=== PATIENT | male | born 1990 | race Caucasian/White ===

== ENCOUNTER 2017-03-04 03:28 | Inpatient (IN) | payer BC, OTHER ==
[~2017-03-04] VITALS: Ht 193 cm; Wt 72.8 kg
[2017-03-04] MEDS ORDERED: HALOPERIDOL 5 MG/ML VIAL (J1630) IM STA (03:33)
[2017-03-04] MEDS ORDERED: diphenhydrAMINE INJ 50MG/ML VIAL (J1200) IM ONE (03:45)
[2017-03-04 04:20] LABS: MEAN CORPUSCULAR HGB CONC 34.4 g/dl (32.0-36.5); MEAN CORPUSCULAR VOLUME 90.1 fl (80.0-96.0); WHITE BLOOD COUNT 15.9 K/mm3 (4.0-10.0)
[2017-03-04 04:54] LABS: ALBUMIN 4.4 GM/DL (3.2-5.2); ALBUMIN/GLOBULIN RATIO 1.42 (1.00-1.93); ALKALINE PHOSPHATASE 71 U/L (45-117); ALT/SGPT 29 U/L (12-78); ANION GAP 15 MEQ/L (8-16); AST/SGOT 30 U/L (15-37); BILIRUBIN,DIRECT 0.3 MG/DL (0.0-0.2); BILIRUBIN,TOTAL 1.4 MG/DL (0.2-1.0); BLOOD UREA NITROGEN 17 MG/DL (7-18); CALCIUM LEVEL 8.7 MG/DL (8.5-10.1); CARBON DIOXIDE LEVEL 20 MEQ/L (21-32); CHLORIDE LEVEL 103 MEQ/L (98-107); CREATININE FOR GFR 1.47 MG/DL (0.70-1.30); GLOMERULAR FILTRATION RATE > 60.0 (>60); GLUCOSE, FASTING 268 MG/DL (70-105); POTASSIUM SERUM 3.5 MEQ/L (3.5-5.1); SODIUM LEVEL 138 MEQ/L (136-145); TOTAL PROTEIN 7.5 GM/DL (6.4-8.2)
[2017-03-04 05:02] LABS: METHADONE URINE NEGATIVE (NEGATIVE)
[2017-03-04 05:33] LABS: CONTROL LINE INT CTR LINE PRESENT; HIV SCRN NEGATIVE (NEGATIVE); HIV SCRN1 NEGATIVE (NEGATIVE)
[2017-03-04] MEDS ORDERED: LIDOCAINE 1% MDV 20ML VIAL As Ordered ONE (05:52)
[2017-03-04] MEDS ORDERED: LIDOCAINE 1% SDV INJ 30 ML VIAL SC SCH (06:00)
[2017-03-04] MEDS ORDERED: DERMABOND TOPICAL SKIN ADHESIVE TOP ONE (06:00)
[2017-03-04] MEDS ORDERED: LIDOCAINE 1% SDV INJ 30 ML VIAL SC ONE (06:00)
[2017-03-04] MEDS ORDERED: ALBU17IN INH (12:55)
[2017-03-04] MEDS ORDERED: ACETAMINOPHEN TAB 650MG DOSE (2X325MG) PO ONE (19:30)
[2017-03-04] MEDS ORDERED: MAALOX 30 ML SUSP *UDC PO PRN (20:15)
[2017-03-04] MEDS ORDERED: MOM 30ML SUSPENSION UDC PO PRN (20:15)
[2017-03-04 21:10] VITALS: BP 123/89
[2017-03-04] MEDS: QUEtiapine FUMARATE 100 MG TAB PO SCH (22:04)
[2017-03-04] MEDS: risperiDONE 1 MG TAB PO SCH (22:04)
[2017-03-04] MEDS: LORazepam 1 MG TAB PO PRN (22:04)
[2017-03-04] MEDS: traZODone 50 MG TAB PO PRN (22:04)
[2017-03-05] MEDS: ACETAMINOPHEN TAB 650MG DOSE (2X325MG) PO PRN ×2 (06:17→18:12)
[2017-03-05 06:23] VITALS: BP 128/80
[2017-03-05] MEDS: risperiDONE 1 MG TAB PO SCH ×2 (09:07→20:47)
[2017-03-05] MEDS ORDERED: ALBUTEROL 90 MCG/ACT 8GM HFA INHALER INH PRN (10:45)
[2017-03-05 12:24] LABS: BASO % 0.3 % (0.0-1.0); EOS % 0.5 % (0.0-3.0); LARGE UNSTAINED CELL # 0.1 K/mm3 (0.0-0.4); LARGE UNSTAINED CELL % 1.2 % (0.0-4.0); LYMPH # 1.4 K/mm3 (1.5-6.5); LYMPH % 16.8 % (24.0-44.0); MEAN CORPUSCULAR HEMOGLOBIN 30.8 pg (27.0-33.0); MEAN CORPUSCULAR HGB CONC 34.3 g/dl (32.0-36.5); MEAN CORPUSCULAR VOLUME 89.7 fl (80.0-96.0); MONO # 0.4 K/mm3 (0.0-0.8); MONO % 5.2 % (0.0-5.0); NEUTROPHILS # 6.4 K/mm3 (1.8-7.7); PLATELET COUNT, AUTOMATED 199 k/mm3 (150-450); RED CELL DISTRIBUTION WIDTH 12.1 % (11.5-14.5); WHITE BLOOD COUNT 8.4 K/mm3 (4.0-10.0)
[2017-03-05 12:58] LABS: ALBUMIN 4.4 GM/DL (3.2-5.2); ALBUMIN/GLOBULIN RATIO 1.83 (1.00-1.93); BILIRUBIN,TOTAL 1.7 MG/DL (0.2-1.0); CALCIUM LEVEL 8.9 MG/DL (8.5-10.1); CREATININE FOR GFR 1.61 MG/DL (0.70-1.30); GLOMERULAR FILTRATION RATE 55.9 (>60); POTASSIUM SERUM 3.9 MEQ/L (3.5-5.1); TOTAL PROTEIN 6.8 GM/DL (6.4-8.2)
[2017-03-05] MEDS: LORazepam 1 MG TAB PO PRN (15:38)
[2017-03-05] MEDS: HALOPERIDOL 5 MG TAB PO PRN (16:35)
[2017-03-05] MEDS: diphenhydrAMINE 25 MG CAP PO PRN (17:17)
[2017-03-05 18:00] VITALS: BP 132/74
[2017-03-05] MEDS: QUEtiapine FUMARATE 100 MG TAB PO SCH (20:47)
[2017-03-06 06:12] VITALS: BP 145/75
[2017-03-06] MEDS: HALOPERIDOL 5 MG TAB PO PRN ×3 (06:22→18:51)
[2017-03-06] MEDS: diphenhydrAMINE 25 MG CAP PO PRN ×2 (08:25→18:51)
[2017-03-06] MEDS: risperiDONE 1 MG TAB PO SCH ×3 (08:25→20:13)
[2017-03-06 11:31] LABS: ALBUMIN 3.7 GM/DL (3.2-5.2); ALBUMIN/GLOBULIN RATIO 1.54 (1.00-1.93); ALKALINE PHOSPHATASE 58 U/L (45-117); ALT/SGPT 37 U/L (12-78); ANION GAP 5 MEQ/L (8-16); AST/SGOT 39 U/L (15-37); BILIRUBIN,TOTAL 1.2 MG/DL (0.2-1.0); BLOOD UREA NITROGEN 16 MG/DL (7-18); CALCIUM LEVEL 8.5 MG/DL (8.5-10.1); CARBON DIOXIDE LEVEL 30 MEQ/L (21-32); CHLORIDE LEVEL 105 MEQ/L (98-107); GLOMERULAR FILTRATION RATE > 60.0 (>60); GLUCOSE, FASTING 87 MG/DL (70-105); POTASSIUM SERUM 4.2 MEQ/L (3.5-5.1); SODIUM LEVEL 140 MEQ/L (136-145); TOTAL PROTEIN 6.1 GM/DL (6.4-8.2)
[2017-03-06] MEDS ORDERED: QUEtiapine FUMARATE 100 MG TAB PO SCH (16:00)
[2017-03-06 18:00] VITALS: BP 146/83
[2017-03-06] MEDS ORDERED: LORazepam 1 MG TAB PO PRN (19:00)
[2017-03-06] MEDS: QUEtiapine FUMARATE 200 MG TAB PO SCH (20:13)
[2017-03-07 06:42] VITALS: BP 134/82
[2017-03-07 08:22] LABS: ALBUMIN/GLOBULIN RATIO 1.54 (1.00-1.93); ALKALINE PHOSPHATASE 60 U/L (45-117); ALT/SGPT 31 U/L (12-78); ANION GAP 8 MEQ/L (8-16); AST/SGOT 30 U/L (15-37); BILIRUBIN,TOTAL 1.6 MG/DL (0.2-1.0); BLOOD UREA NITROGEN 15 MG/DL (7-18); CALCIUM LEVEL 8.6 MG/DL (8.5-10.1); CARBON DIOXIDE LEVEL 29 MEQ/L (21-32); CHLORIDE LEVEL 104 MEQ/L (98-107); CREATININE FOR GFR 1.16 MG/DL (0.70-1.30); GLOMERULAR FILTRATION RATE > 60.0 (>60); GLUCOSE, FASTING 86 MG/DL (70-105); POTASSIUM SERUM 3.8 MEQ/L (3.5-5.1); SODIUM LEVEL 141 MEQ/L (136-145); TOTAL PROTEIN 6.6 GM/DL (6.4-8.2)
[2017-03-07] MEDS: QUEtiapine FUMARATE 200 MG TAB PO SCH ×2 (08:31→20:29)
[2017-03-07] MEDS: LORazepam 1 MG TAB PO PRN ×2 (08:31→20:29)
[2017-03-07] MEDS: risperiDONE 1 MG TAB PO SCH ×3 (08:31→20:29)
[2017-03-07] MEDS: HALOPERIDOL 5 MG TAB PO PRN (13:59)
[2017-03-07] MEDS: diphenhydrAMINE 25 MG CAP PO PRN (13:59)
[2017-03-07 18:33] VITALS: BP 138/75
[2017-03-08 00:06] LABS: MDPV Negative (NEGATIVE); MEPHEDRONE Negative (NEGATIVE)
[2017-03-08] MEDS: traZODone 50 MG TAB PO PRN (01:33)
[2017-03-08] MEDS: diphenhydrAMINE 25 MG CAP PO PRN ×2 (01:33→16:53)
[2017-03-08] MEDS: HALOPERIDOL 5 MG TAB PO PRN ×2 (05:17→15:51)
[2017-03-08 07:19] VITALS: BP 152/98
[2017-03-08] MEDS: QUEtiapine FUMARATE 200 MG TAB PO SCH ×2 (08:24→20:21)
[2017-03-08] MEDS: risperiDONE 1 MG TAB PO SCH ×3 (08:24→20:21)
[2017-03-08] MEDS: LORazepam 1 MG TAB PO PRN ×2 (12:43→18:46)
[2017-03-08 18:00] VITALS: BP 154/70
[2017-03-09] MEDS: traZODone 50 MG TAB PO PRN ×2 (00:20→21:44)
[2017-03-09 06:00] VITALS: BP 132/79
[2017-03-09] MEDS: LORazepam 1 MG TAB PO PRN ×2 (07:09→12:51)
[2017-03-09] MEDS: risperiDONE 1 MG TAB PO SCH ×3 (09:08→21:11)
[2017-03-09] MEDS: QUEtiapine FUMARATE 200 MG TAB PO SCH ×2 (09:09→21:11)
[2017-03-09] MEDS: HALOPERIDOL 5 MG TAB PO PRN ×2 (10:59→17:21)
[2017-03-09 11:12] LABS: ALBUMIN 4.3 GM/DL (3.2-5.2); ALBUMIN/GLOBULIN RATIO 1.65 (1.00-1.93); ALKALINE PHOSPHATASE 65 U/L (45-117); ALT/SGPT 28 U/L (12-78); ANION GAP 7 MEQ/L (8-16); AST/SGOT 15 U/L (15-37); BLOOD UREA NITROGEN 16 MG/DL (7-18); CALCIUM LEVEL 9.2 MG/DL (8.5-10.1); CARBON DIOXIDE LEVEL 29 MEQ/L (21-32); CHLORIDE LEVEL 104 MEQ/L (98-107); GLOMERULAR FILTRATION RATE > 60.0 (>60); GLUCOSE, FASTING 84 MG/DL (70-105); POTASSIUM SERUM 4.4 MEQ/L (3.5-5.1); SODIUM LEVEL 140 MEQ/L (136-145); TOTAL PROTEIN 6.9 GM/DL (6.4-8.2)
[2017-03-09] MEDS: diphenhydrAMINE 25 MG CAP PO PRN ×2 (12:23→18:41)
[2017-03-09 15:45] VITALS: BP 161/108
[2017-03-09] MEDS ORDERED: LORazepam 1 MG TAB PO ONE (16:15)
[2017-03-09 18:00] VITALS: BP 139/86
[2017-03-10] MEDS: LORazepam 1 MG TAB PO PRN ×3 (03:26→18:11)
[2017-03-10] MEDS: HALOPERIDOL 5 MG TAB PO PRN ×3 (03:26→20:37)
[2017-03-10 06:00] VITALS: BP 144/85
[2017-03-10] MEDS: QUEtiapine FUMARATE 200 MG TAB PO SCH ×2 (08:48→20:00)
[2017-03-10] MEDS: diphenhydrAMINE 25 MG CAP PO PRN ×2 (08:48→15:43)
[2017-03-10] MEDS: risperiDONE 1 MG TAB PO SCH ×3 (08:48→20:00)
[2017-03-10] MEDS: ACETAMINOPHEN TAB 650MG DOSE (2X325MG) PO PRN (11:58)
[2017-03-10 18:00] VITALS: BP 142/82
[2017-03-11] MEDS: traZODone 50 MG TAB PO PRN (01:16)
[2017-03-11 06:20] VITALS: BP 140/83
[2017-03-11] MEDS: risperiDONE 1 MG TAB PO SCH ×3 (08:34→20:34)
[2017-03-11] MEDS: QUEtiapine FUMARATE 200 MG TAB PO SCH ×2 (08:34→20:34)
[2017-03-11] MEDS: diphenhydrAMINE 25 MG CAP PO PRN (09:46)
[2017-03-11] MEDS: HALOPERIDOL 5 MG TAB PO PRN ×2 (09:46→17:50)
[2017-03-11] MEDS: LORazepam 1 MG TAB PO PRN (11:06)
[2017-03-11 18:00] VITALS: BP 127/67
[2017-03-11] MEDS ORDERED: PALIPERIDONE 3 MG ER TAB (INVEGA) PO SCH (21:00)
[2017-03-11] MEDS ORDERED: fluvoxaMINE MALEATE 50 MG TAB PO SCH (21:00)
[2017-03-12] MEDS: traZODone 50 MG TAB PO PRN ×2 (01:51→23:30)
[2017-03-12 06:06] VITALS: BP 134/74
[2017-03-12] MEDS ORDERED: PALIPERIDONE PALMITATE 234 MG/1.5 ML INJ (INVEGA SUSTENNA)(J2426) IM ONE (08:00)
[2017-03-12] MEDS: risperiDONE 1 MG TAB PO SCH ×2 (08:29→20:11)
[2017-03-12] MEDS: QUEtiapine FUMARATE 200 MG TAB PO SCH (08:29)
[2017-03-12] MEDS: CitaloPRAM (CeleXA) 20 MG TAB PO SCH (11:17)
[2017-03-12] MEDS: diphenhydrAMINE 25 MG CAP PO PRN (11:17)
[2017-03-12] MEDS: HALOPERIDOL 5 MG TAB PO PRN (11:17)
[2017-03-12] MEDS: LORazepam 1 MG TAB PO PRN ×2 (13:35→20:11)
[2017-03-12 18:23] VITALS: BP 129/68
[2017-03-12] MEDS: QUEtiapine FUMARATE 100 MG TAB PO SCH (20:11)
[2017-03-13 06:19] VITALS: BP 134/72
[2017-03-13] MEDS: QUEtiapine FUMARATE 50 MG TAB PO SCH (08:06)
[2017-03-13] MEDS: risperiDONE 1 MG TAB PO SCH ×2 (08:06→20:13)
[2017-03-13] MEDS: CitaloPRAM (CeleXA) 20 MG TAB PO SCH (08:06)
[2017-03-13] MEDS: diphenhydrAMINE 25 MG CAP PO PRN (15:35)
[2017-03-13 18:08] VITALS: BP 136/60
[2017-03-13] MEDS: QUEtiapine FUMARATE 100 MG TAB PO SCH (20:13)
[2017-03-13] MEDS: traZODone 50 MG TAB PO PRN (23:49)
[2017-03-14 06:39] VITALS: BP 120/67
[2017-03-14] MEDS: QUEtiapine FUMARATE 50 MG TAB PO SCH (08:23)
[2017-03-14] MEDS: CitaloPRAM (CeleXA) 20 MG TAB PO SCH (08:23)
[2017-03-14] MEDS: risperiDONE 1 MG TAB PO SCH ×2 (08:23→20:23)
[2017-03-14] MEDS: diphenhydrAMINE 25 MG CAP PO PRN ×2 (08:23→15:02)
[2017-03-14] MEDS: LORazepam 1 MG TAB PO PRN (13:55)
[2017-03-14 18:00] VITALS: BP 139/83
[2017-03-14] MEDS: QUEtiapine FUMARATE 100 MG TAB PO SCH (23:23)
[2017-03-14] MEDS: traZODone 50 MG TAB PO PRN (23:54)
[2017-03-15 06:37] VITALS: BP 142/76
[2017-03-15] MEDS: QUEtiapine FUMARATE 50 MG TAB PO SCH ×2 (09:00→10:21)
[2017-03-15] MEDS: risperiDONE 1 MG TAB PO SCH ×2 (09:10→21:17)
[2017-03-15] MEDS: CitaloPRAM (CeleXA) 20 MG TAB PO SCH (09:10)
[2017-03-15] MEDS: diphenhydrAMINE 25 MG CAP PO PRN (15:35)
[2017-03-15] MEDS: LORazepam 1 MG TAB PO PRN (16:28)
[2017-03-15 18:00] VITALS: BP 114/60
[2017-03-15] MEDS: QUEtiapine FUMARATE 100 MG TAB PO SCH (21:17)
[2017-03-16 06:31] VITALS: BP 119/60
[2017-03-16] MEDS: diphenhydrAMINE 25 MG CAP PO PRN ×2 (06:47→15:58)
[2017-03-16] MEDS: QUEtiapine FUMARATE 50 MG TAB PO SCH (08:56)
[2017-03-16] MEDS: CitaloPRAM (CeleXA) 20 MG TAB PO SCH (08:56)
[2017-03-16] MEDS: risperiDONE 1 MG TAB PO SCH ×2 (08:56→20:00)
[2017-03-16] MEDS: LORazepam 1 MG TAB PO PRN (13:03)
[2017-03-16 18:06] VITALS: BP 123/58
[2017-03-16] MEDS: QUEtiapine FUMARATE 100 MG TAB PO SCH (21:38)
[2017-03-17] MEDS: traZODone 50 MG TAB PO PRN (01:38)
[2017-03-17 06:22] VITALS: BP 128/64
[2017-03-17] MEDS: CitaloPRAM (CeleXA) 20 MG TAB PO SCH (08:14)
[2017-03-17] MEDS: QUEtiapine FUMARATE 50 MG TAB PO SCH (08:14)
[2017-03-17] MEDS: risperiDONE 1 MG TAB PO SCH ×2 (08:14→20:36)
[2017-03-17] MEDS: diphenhydrAMINE 25 MG CAP PO PRN ×2 (09:58→16:07)
[2017-03-17] MEDS: LORazepam 1 MG TAB PO PRN (14:03)
[2017-03-17 18:00] VITALS: BP 135/75
[2017-03-17] MEDS: QUEtiapine FUMARATE 100 MG TAB PO SCH (20:36)
[2017-03-18] MEDS: traZODone 50 MG TAB PO PRN (02:22)
[2017-03-18 07:03] VITALS: BP 131/77
[2017-03-18] MEDS: CitaloPRAM (CeleXA) 20 MG TAB PO SCH (08:02)
[2017-03-18] MEDS: QUEtiapine FUMARATE 50 MG TAB PO SCH (08:02)
[2017-03-18] MEDS: risperiDONE 1 MG TAB PO SCH ×2 (08:02→20:00)
[2017-03-18] MEDS: LORazepam 1 MG TAB PO PRN (12:23)
[2017-03-18] MEDS: ACETAMINOPHEN TAB 650MG DOSE (2X325MG) PO PRN (12:24)
[2017-03-18 18:00] VITALS: BP 113/58
[2017-03-18] MEDS: QUEtiapine FUMARATE 100 MG TAB PO SCH (20:00)
[2017-03-19] MEDS: traZODone 50 MG TAB PO PRN (01:42)
[2017-03-19 06:00] VITALS: BP 137/76
[2017-03-19] MEDS: CitaloPRAM (CeleXA) 20 MG TAB PO SCH (08:30)
[2017-03-19] MEDS: QUEtiapine FUMARATE 50 MG TAB PO SCH (08:30)
[2017-03-19] MEDS: risperiDONE 1 MG TAB PO SCH (08:31)
[2017-03-19] MEDS: ACETAMINOPHEN TAB 650MG DOSE (2X325MG) PO PRN (09:49)
[2017-03-19] MEDS: diphenhydrAMINE 25 MG CAP PO PRN (10:21)
[2017-03-19] MEDS ORDERED: PALIPERIDONE PALMITATE 156 MG/1ML INJ(INVEGA SUSTENNA)(J2426) IM ONE (11:00)
[2017-03-19] MEDS ORDERED: INVE234I IM (11:55)
[2017-03-19] MEDS ORDERED: CELE20TA PO (11:55)
[2017-03-19] MEDS ORDERED: QUET1TAB8 PO (11:55)
[2017-03-19] MEDS ORDERED: RISP1TAB41 PO (11:55)
[2017-03-19] MEDS ORDERED: TRAZO50TA PO (11:55)
[2017-03-19] MEDS ORDERED: DIPH50CA PO (11:55)
[2017-03-19] MEDS: diphenhydrAMINE 50 MG CAP PO SCH ×2 (15:05→21:46)
[2017-03-19] MEDS: LORazepam 1 MG TAB PO PRN (15:56)
[2017-03-19 18:00] VITALS: BP 122/58
[2017-03-19] MEDS ORDERED: traZODone 50 MG TAB PO SCH (21:00)
[2017-03-19] MEDS: QUEtiapine FUMARATE 100 MG TAB PO SCH (21:46)
[2017-03-20 06:21] VITALS: BP 124/72
[2017-03-20] MEDS: diphenhydrAMINE 50 MG CAP PO SCH (08:19)
[2017-03-20] MEDS: CitaloPRAM (CeleXA) 20 MG TAB PO SCH (08:20)
[2017-03-20] MEDS: QUEtiapine FUMARATE 50 MG TAB PO SCH (08:20)
[2017-03-20] MEDS ORDERED: risperiDONE 1 MG TAB PO SCH (09:00)
[2017-04-11] MEDS ORDERED: PALIPERIDONE PALMITATE 234 MG/1.5 ML INJ (INVEGA SUSTENNA)(J2426) IM SCH (09:00)
== END 2017-03-20 13:05 | disposition home or self-care (01) | DRG 750 ==
LOC: EDBD 03:28 → M ED 09:50 → M ED INP 20:02 → M PSY 21:09
PROVIDERS: ADMIT Psychiatry & Neurology Psychiatry; ATTEND Psychiatry & Neurology Psychiatry
DX: F20.9 Schizophrenia, unspecified (principal); Z91.19 Patient's noncompliance with other medical treatment and regimen; F84.5 Asperger's syndrome; F42.9 Obsessive-compulsive disorder, unspecified; F12.90 Cannabis use, unspecified, uncomplicated; J45.909 Unspecified asthma, uncomplicated; F17.200 Nicotine dependence, unspecified, uncomplicated; D72.829 Elevated white blood cell count, unspecified

== ENCOUNTER 2017-03-22 04:17 | Emergency (ER) | payer OTHER ==
[~2017-03-22] VITALS: Ht 193 cm; Wt 81.2 kg
[~2017-03-22 04:17] MED LIST: ALBU17IN INH; CELE20TA PO; DIPH50CA PO; INVE234I IM; QUET1TAB8 PO; RISP1TAB41 PO; TRAZO50TA PO
[2017-03-22 04:33] VITALS: BP 140/82
[2017-03-22] MEDS ORDERED: ATIV1TAB10 PO (12:09)
== END 2017-03-22 05:44 | disposition left against medical advice (07) ==
LOC: EDBD 04:17 → M ED 05:15
DX: F43.0 Acute stress reaction (principal); Z53.21 Procedure and treatment not carried out due to patient leaving prior to being seen by health care provider

== ENCOUNTER 2017-03-22 08:55 | Emergency (ER) | payer OTHER ==
[~2017-03-22 08:55] MED LIST changes: -RISP1TAB41 PO; +RISP1TAB42 PO
[2017-03-22 11:06] LABS: MEAN CORPUSCULAR HEMOGLOBIN 30.9 pg (27.0-33.0); MEAN CORPUSCULAR HGB CONC 34.3 g/dl (32.0-36.5); MEAN CORPUSCULAR VOLUME 89.9 fl (80.0-96.0); RED CELL DISTRIBUTION WIDTH 12.3 % (11.5-14.5); WHITE BLOOD COUNT 8.3 K/mm3 (4.0-10.0)
[2017-03-22 11:23] LABS: METHADONE URINE NEGATIVE (NEGATIVE)
[2017-03-22 11:26] LABS: ALBUMIN 4.7 GM/DL (3.2-5.2); ALBUMIN/GLOBULIN RATIO 1.62 (1.00-1.93); ALKALINE PHOSPHATASE 69 U/L (45-117); ALT/SGPT 31 U/L (12-78); ANION GAP 6 MEQ/L (8-16); AST/SGOT 21 U/L (15-37); BILIRUBIN,DIRECT 0.2 MG/DL (0.0-0.2); BILIRUBIN,TOTAL 0.8 MG/DL (0.2-1.0); BLOOD UREA NITROGEN 9 MG/DL (7-18); CARBON DIOXIDE LEVEL 30 MEQ/L (21-32); CHLORIDE LEVEL 106 MEQ/L (98-107); CREATININE FOR GFR 0.86 MG/DL (0.70-1.30); GLOMERULAR FILTRATION RATE > 60.0 (>60); GLUCOSE, FASTING 107 MG/DL (70-105); POTASSIUM SERUM 3.9 MEQ/L (3.5-5.1); SODIUM LEVEL 142 MEQ/L (136-145); TOTAL PROTEIN 7.6 GM/DL (6.4-8.2)
[2017-03-22] MEDS ORDERED: ATIV1TAB10 PO (12:09)
[2017-03-22 12:21] VITALS: BP 140/85
--- NOTE | 2017-03-22 12:21 | ECGEPIP ---
Stationary ECG Study [facility] - ED Test Date: 2017-03-22 Pat Name: ALBINO HOOKER Department: Room: - Gender: M [employer]: : 1990 Requested By: Chi Winters Order Number: [id number] Reading MD: Chi Barnes Measurements Intervals [place] Rate: 83 P: 81 [place]: 143 QRS: 83 QRSD: 106 T: 54 QT: 374 QTc: 442 Interpretive Statements SINUS RHYTHM MODERATE IVCD SIMILAR TO 03/04/17 Electronically Signed On 03-22-2017 12:21:09 EDT by Chi Barnes
== END 2017-03-22 12:35 | disposition home or self-care (01) ==
LOC: M ED 09:25
DX: F41.9 Anxiety disorder, unspecified (principal); F20.9 Schizophrenia, unspecified; F17.200 Nicotine dependence, unspecified, uncomplicated; F12.10 Cannabis abuse, uncomplicated; G47.00 Insomnia, unspecified; Z79.899 Other long term (current) drug therapy
CPT/HCPCS: 36415; 80048; 80076; 80306; 84443; 85027; 93005; 99284; G0480

== ENCOUNTER → 2017-03-26 | Outpatient (CLI) | payer OTHER ==
[~2017-03-26] MED LIST changes: +ATIV1TAB10 PO; +RISP1TAB41 PO; -RISP1TAB42 PO
== END ==
LOC: M OUTALCOH 08:40
PROVIDERS: ATTEND Psychiatry & Neurology Psychiatry
DX: F12.20 Cannabis dependence, uncomplicated (principal)

== ENCOUNTER → 2017-03-29 | Outpatient (RCR) | payer OTHER ==
[~2017-03-29] MED LIST changes: -RISP1TAB41 PO; +RISP1TAB42 PO
== END ==
LOC: M OUTALCOH 09:32
PROVIDERS: ATTEND Psychiatry & Neurology Psychiatry
DX: F12.20 Cannabis dependence, uncomplicated (principal)

== ENCOUNTER → 2017-04-29 | Outpatient (RCR) | payer OTHER | LOC: M OUTALCOH 04-03 11:06 | PROVIDERS: ATTEND Psychiatry & Neurology Psychiatry | DX: F12.20 Cannabis dependence, uncomplicated (principal); F17.200 Nicotine dependence, unspecified, uncomplicated ==

== ENCOUNTER → 2017-05-30 | Outpatient (RCR) | payer OTHER | LOC: M OUTALCOH 05-09 13:32 | PROVIDERS: ATTEND Psychiatry & Neurology Psychiatry | DX: F12.20 Cannabis dependence, uncomplicated (principal); F17.200 Nicotine dependence, unspecified, uncomplicated ==

== ENCOUNTER 2017-06-24 16:00 | Outpatient (RCR) | payer OTHER | END 2017-06-29 | LOC: M OUTALCOH 16:00 | PROVIDERS: ATTEND Psychiatry & Neurology Psychiatry | DX: F12.20 Cannabis dependence, uncomplicated (principal); F17.200 Nicotine dependence, unspecified, uncomplicated ==

== ENCOUNTER → 2017-08-29 | Outpatient (RCR) | payer OTHER | LOC: M OUTALCOH 08-01 09:00 | PROVIDERS: ATTEND Psychiatry & Neurology Psychiatry | DX: F12.20 Cannabis dependence, uncomplicated (principal); F17.200 Nicotine dependence, unspecified, uncomplicated ==

== ENCOUNTER 2017-09-02 14:30 | Outpatient (RCR) | payer OTHER | END 2017-09-29 | LOC: M OUTALCOH 14:30 | DX: F12.20 Cannabis dependence, uncomplicated (principal); F17.200 Nicotine dependence, unspecified, uncomplicated ==

== ENCOUNTER 2017-10-03 10:23 | Outpatient (RCR) | payer OTHER | END 2017-10-30 | LOC: M OUTALCOH 10:23 | DX: F12.20 Cannabis dependence, uncomplicated (principal); F17.200 Nicotine dependence, unspecified, uncomplicated ==

== ENCOUNTER 2017-10-31 13:22 | Outpatient (RCR) | payer OTHER | END 2017-11-27 | LOC: M OUTALCOH 13:22 | DX: F12.20 Cannabis dependence, uncomplicated (principal); F17.200 Nicotine dependence, unspecified, uncomplicated ==

== ENCOUNTER 2017-12-02 13:04 | Outpatient (RCR) | payer OTHER | END 2017-12-28 | LOC: M OUTALCOH 12-16 09:00 | DX: F12.20 Cannabis dependence, uncomplicated (principal); F17.200 Nicotine dependence, unspecified, uncomplicated ==

== ENCOUNTER 2018-01-06 09:49 | Outpatient (RCR) | payer OTHER | END 2018-01-27 | LOC: M OUTALCOH 01-15 14:00 | DX: F12.20 Cannabis dependence, uncomplicated (principal); F17.200 Nicotine dependence, unspecified, uncomplicated ==

== ENCOUNTER 2018-02-03 13:36 | Outpatient (RCR) | payer OTHER | END 2018-02-27 | LOC: M OUTALCOH 13:36 | DX: F12.20 Cannabis dependence, uncomplicated (principal); F17.200 Nicotine dependence, unspecified, uncomplicated ==

== ENCOUNTER 2018-03-05 10:13 | Outpatient (RCR) | payer OTHER | END 2018-03-29 | LOC: M OUTALCOH 10:13 | DX: F12.20 Cannabis dependence, uncomplicated (principal); F17.200 Nicotine dependence, unspecified, uncomplicated ==

== ENCOUNTER → 2018-05-19 | Outpatient (CLI) | payer OTHER, MEDICAID | LOC: M WUC 18:13 | DX: M25.532 Pain in left wrist (principal) | CPT/HCPCS: 73110 ==